=== PATIENT | male | born 1955 | race Caucasian/White ===

== ENCOUNTER 2025-10-16 09:58 | Day surgery (SDC) | payer MEDICARE ==
[2025-10-16] MEDS ORDERED: Acetaminophen 500 MG TAB ONE (11:05)
[2025-10-16] MEDS ORDERED: diphenhydrAMINE 25 MG CAP ONE (11:05)
[2025-10-16] MEDS: Acetaminophen 500 MG TAB PO SCH (11:06)
[2025-10-16] MEDS: diphenhydrAMINE 25 MG CAP PO SCH (11:06)
[2025-10-16 11:29] VITALS: TEMP 98.2
[2025-10-16 13:44] VITALS: BP 143/72
== END 2025-10-16 13:45 | disposition home or self-care (01) ==
LOC: ONC/OP 09:58
PROVIDERS: ATTEND Nurse Practitioner Adult Health
DX: D64.9 Anemia, unspecified (principal); D69.59 Other secondary thrombocytopenia
CPT/HCPCS: 36430; 86850; 86900; 86901; 86920; P9016